=== PATIENT | female | born 1965 | race Caucasian/White ===

== ENCOUNTER 2017-08-18 09:24 | Observation (INO) | payer OTHER, SELFPAY ==
[2017-08-18 10:44] LABS: ALT (SGPT) 12 U/L (8-55); AST (SGOT) 13 U/L (5-34); Alkaline Phosphatase 85 U/L (40-150); Anion Gap 12 mmol/L (10-20); BUN (Urea Nitrogen) 12 mg/dL (9.8-20.1); Bilirubin, Total 0.2 mg/dL (0.2-1.2); Calc. Creatinine Clearance 0 mL/min (70-130); Calcium 8.8 mg/dL (7.8-10.44); Carbon Dioxide 26 mmol/L (22-29); Chloride 105 mmol/L (98-107); Estimated GFR-MDRD 89; Globulin 2.9 g/dL (2.4-3.5); Protein, Total 6.3 g/dL (6.0-8.3)
[2017-08-18 10:55] LABS: Hematocrit 16.1 % (36.0-47.0); Mean Platelet Volume 5.4 fL (7.4-10.4); Red Blood Cell (RBC) Count 2.38 mill/uL (4.20-5.40); White Blood Cell (WBC) Count 7.1 thou/uL (4.8-10.8)
[2017-08-18 11:10] LABS: #Basophils 0.1 thou/uL (0.0-0.2); #Eosinphils 0.2 thou/uL (0.0-0.7); #Lymphocytes 2.4 thou/uL (1.20-3.40); #Neutrophils 3.4 thou/uL (1.40-6.50); %Basophils 1.5 % (0.0-1.0); %Eosinophils 2.8 % (0.0-10.0); %Lymphocytes 33.1 % (21.0-51.0); %Monocytes 14.7 % (0.0-10.0); Hypochromia MODERATE=16-30 cells (100X) (0-5/hpf); Microcytosis MARKED = >30 cells (100X) (0-5/hpf)
[2017-08-18 11:40] LABS: Hematocrit 18.4 % (36.0-47.0); White Blood Cell (WBC) Count 7.7 thou/uL (4.8-10.8)
[2017-08-18 11:58] LABS: #Basophils 0.1 thou/uL (0.0-0.2); #Eosinphils 0.2 thou/uL (0.0-0.7); #Lymphocytes 2.6 thou/uL (1.20-3.40); #Neutrophils 3.7 thou/uL (1.40-6.50); %Basophils 0.8 % (0.0-1.0); %Eosinophils 2.6 % (0.0-10.0); %Lymphocytes 34.4 % (21.0-51.0); %Monocytes 13.4 % (0.0-10.0); Hypochromia MODERATE=16-30 cells (100X) (0-5/hpf); Microcytosis MARKED = >30 cells (100X) (0-5/hpf)
--- NOTE | 2017-08-18 12:10 | RAD ---
PA AND LATERAL CHEST: Date: 08/18/17 HISTORY: Dyspnea. COMPARISON: 08/08/05. FINDINGS: Heart size is within normal limits. Mediastinal structures appear unremarkable. Lungs are clear of in filtrates. There are no significant bony findings. IMPRESSION: No active intrathoracic disease. POS: [facility]
[2017-08-18 12:18] LABS: Bilirubin Negative (Negative); Blood, Urine Negative (Negative); Glucose, Urine (Dipstick) Negative (Negative); Ketone, Urine Negative (Negative); Nitrite Negative (Negative); Protein, Urine (Dipstick) Negative (Neg-Trace); Urobilinogen 0.2 mg/dL (0.2-1.0)
[2017-08-18 12:34] LABS: Iron 154 ug/dL (50-170)
[2017-08-18 14:05] LABS: IRF 0.495 Ratio (0.163-0.362); Reticulocyte Count 4.6 % (0.5-1.5)
[2017-08-18] MEDS ORDERED: Acetaminophen 325 MG TAB PO PRN (14:39)
[2017-08-18] MEDS ORDERED: Ondansetron HCl/PF 4 MG/2 ML Vial IVP PRN (14:39)
[2017-08-18] MEDS ORDERED: Ondansetron ODT 4 MG TAB SL PRN (14:39)
[2017-08-18 15:52] VITALS: BMI 28.2
--- NOTE | 2017-08-18 17:01 | PDOC.EVN ---
Attending Addendum - Attending Addendum I personally evaluated the patient and discussed the management with Dr. Vick. I agree with the History, Examination, Assessment and Plan documented in her H& P with any addition or exceptions noted below. Patient with significant medical history for multiple GI surgeries, most recently an ischemic bowel resection in February, here for 1 month history of worsening symptoms of fatigue, dyspnea on exertion, palpitations, and presyncopal symptoms upon position changes. She denies melana, hematochezia, hematemesis. Her last menstrual period as in 2016. She reports she has been taking iron the last few days with minimal improvement. On exam, her vitals are stable. Her BP is normal. She is resting comfortable. She has mild pallor, but exam otherwise normal. Labs show a Hgb of 4.7 with microcytosis and hyporegenerative on retic index. She has no evidence of active bleeding. We will transfuse patient. Awaiting ferritin results as this is likely somewhat a nutritional issue due to her multiple GI resections. However, will also rule out occult bleeding through the GI tract. Her anemia is hyporegenerative, suggesting either bone marrow failure, or more likely a nutritional cause since her other cell lines are not abnormal. Await labs and assess clinical progress.
--- NOTE | 2017-08-18 22:17 | HP-2 ---
CODE STATUS: FULL. PRIMARY CARE PHYSICIAN: None. ATTENDING: Dr. David. RESIDENT: Dr. Vick. CHIEF COMPLAINT: Shortness of breath, palpitations and fatigue. 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 She reports that when she would get up after resting for a while, she will f eel her heart racing. She was recently discharged in February after a small bowel resection where she sanabria d 1.5-2 feet of small bowel resected. She reports no melena or hematochezia. Recently, she does rep ort that she has had some dark stools the last 3 days; however, she recently started taking iron 4 da ys ago due to this fatigue. She has had no recent nausea, vomiting or hematuria. She has not had he r menstrual period since 04/2016. PAST MEDICAL HISTORY: 1. Congenital atresia of small bowel. 2. Anxiety. PAST SURGICAL HISTORY: 1. Congenital atresia of small bowels resection, 2 weeks of age. 2. Adhesiolysis and appendectomy at 16 years of age. 3. Adhesiolysis in 12/2016. 4. Small bowel resection in 01/2017. 5. section. 6. Bilateral tubal ligation. ALLERGIES: CEPHALEXIN. MEDICATIONS: 1. Xanax 0.5 mg daily. 2. Multivitamin. 3. Iron for the past 4 days. FAMILY HISTORY: Mom and dad have hypertension. SOCIAL HISTORY: Denies tobacco, alcohol or drug use, but reports of past history very remotely, but would not expound. REVIEW OF SYSTEMS: A 12-point review of systems was conducted and was negative, except for what was mentioned in the HPI. PHYSICAL EXAMINATION: VITAL SIGNS: Blood pressure 103/53, pulse 83, respiratory rate 18, temperature 98.9, pulse ox 99% on room air and current weight 81.74 kilograms. GENERAL: Alert and oriented x3, no acute distress, well-nourished, appropriately interactive. EYES: PERRLA. Extraocular muscles intact. Conjunctival pallor. ENT: Nasal mucosa and oropharynx within normal limits. NECK: Supple. No lymphadenopathy. CARDIOVASCULAR: Regular rate and rhythm. No murmurs or gallops. 2+ radial and pedal pulses are str shruthi. RESPIRATORY: Normal effort. No retractions. Clear to auscultation bilaterally. SKIN: Warm and dry. No cyanosis or lesions. Generalized pallor. ABDOMEN: Soft, nontender to palpation, normoactive bowel sounds. No mass or distention. Surgical s cars noted. EXTREMITIES: No cyanosis or edema. MUSCULOSKELETAL: Structure and tone within normal limits. NEUROLOGIC: No focal deficits. GCS is 15. PSYCHIATRIC: Appropriate. LABORATORY DATA: WBC 7.1, hemoglobin 4.7, hematocrit 16.1, MCV 67.3 and platelets 347. Sodium 139, potassium 3.7, chloride 105, CO2 of 26, BUN 12, creatinine is 0.69, GFR 89, glucose 84, calcium 8.8, total protein 6.3, albumin 3.4, AST 13, ALT 12, alkaline phosphatase 85, T-bili 0.2. Retic count 4.6 , immature retic fraction 0.495 and retic index 0.82. Vitamin B12 331, folate 17.9, iron 154 and TIB C 393. Blood type A positive, antibody negative. Urinalysis negative for blood, proteins, leukocyte esterase, nitrites, ketones, glucose and bacteria. Chest x-ray showed no active intrathoracic disea se. ASSESSMENT AND PLAN: This is a 51-year-old female who presents with: 1. Severe symptomatic microcytic anemia. Differential diagnosis malabsorption versus gastrointestin al bleeding. We will do a blood transfusion and trend hemoglobin and hematocrit 4 hours status post transfusion. We will check ferritin level and stool guaiac. If the ferritin is low, we will do iron infusion due to a low reticulocyte index. Patient will need better outpatient follow up with outpat ient colonoscopy if no evidence of gastrointestinal bleeding and will need a GI consult with inpatien t colonoscopy if evidence of gastrointestinal bleed is found. 2. History of small-bowel obstruction with postop ileus. We will give stool softeners as giving iro n. 3. Anxiety. We will consider selective serotonin reuptake inhibitor. 4. Venous thromboembolism prophylaxis, sequential compression devices. DISPOSITION: Observation on tele. Symptomatic medications will be provided. History and physical exam as well as management discussed with Dr. David.
[2017-08-19 00:57] LABS: Hematocrit 23.6 % (36.0-47.0)
[2017-08-19 04:07] LABS: #Eosinphils 0.2 thou/uL (0.0-0.7); #Lymphocytes 2.3 thou/uL (1.20-3.40); #Monocytes 0.8 thou/uL (0.11-0.59); #Neutrophils 2.3 thou/uL (1.40-6.50); %Basophils 0.6 % (0.0-1.0); %Eosinophils 4.2 % (0.0-10.0); %Monocytes 14.1 % (0.0-10.0); Hematocrit 23.7 % (36.0-47.0); Mean Platelet Volume 7.5 fL (7.4-10.4); Red Blood Cell (RBC) Count 3.11 mill/uL (4.20-5.40); White Blood Cell (WBC) Count 5.7 thou/uL (4.8-10.8)
[2017-08-19] MEDS: Ascorbic Acid 500 mg Chewable Tablet PO SCH (07:38)
[2017-08-19] MEDS: Cyanocobalamin (Vitamin B-12) 1,000 MCG TAB PO SCH (07:38)
--- NOTE | 2017-08-19 08:57 | PDOC.FM ---
- Subjective Subjective: Patient feeling significantly better and can walk without getting short winded or dizzy this morning. She reports craving ice lately. Denies GI blood loss in stool or emesis. - Objective MAR Reviewed: Yes Vital Signs & Weight: Vital Signs (12 hours) Temp Pulse Resp BP Pulse Ox 08/19/17 07:47 98.1 F 88 16 110/56 L 98 08/19/17 03:58 72 16 89/50 L 99 Weight Weight 81.737 kg I&O: 08/18/17 08/19/17 08/20/17 06:59 06:59 06:59 Intake Total 700 Balance 700 Result Diagrams: 08/19/17 03:24 08/18/17 10:25 <Colleen Ibarra - Last Filed: 08/19/17 10:23> - Objective Vital Signs & Weight: Vital Signs (12 hours) Temp Pulse Resp BP Pulse Ox 08/19/17 07:47 98.1 F 88 16 110/56 L 98 08/19/17 03:58 72 16 89/50 L 99 Weight Weight 81.737 kg I&O: 08/18/17 08/19/17 08/20/17 06:59 06:59 06:59 Intake Total 700 Balance 700 Result Diagrams: 08/19/17 03:24 08/18/17 10:25 <Piotr David - Last Filed: 08/19/17 11:02> Phys Exam - Physical Examination Constitutional: NAD Respiratory: no wheezing, no rales, no rhonchi Cardiovascular: RRR, no significant murmur Gastrointestinal: soft, non-tender, positive bowel sounds Musculoskeletal: no edema Neurological: non-focal, normal sensation, moves all 4 limbs Psychiatric: normal affect, A&O x 3 <Colleen Ibarra - Last Filed: 08/19/17 10:23> Dx/Plan (1) Microcytic anemia Code(s): D50.9 - IRON DEFICIENCY ANEMIA, UNSPECIFIED Status: Acute Plan: now s/p 2 units PRBC and hgb improved from 4.7 TO 7.5. normal iron and TIBC however severely low ferritin, will give iron infusion today. check FOBT and if positive, needs GI consult. If negative will have GI followup outpatient. Likely 2/2 malabsorption due to small bowel anomalies. (2) Congenital atresia of small intestine Code(s): Q41.9 - CONGEN ABSENCE, ATRESIA AND STENOSIS OF SM INT, PART UNSP Status: Chronic <Colleen Ibarra - Last Filed: 08/19/17 10:23> Attending Addendum - Attending Addendum I personally evaluated the patient and discussed the management with Dr. Ibarra. I agree with the History, Examination, Assessment and Plan documented above with any addition or exceptions noted below. Patient feeling significantly better today. Her Hgb has responded appropriately. We are awaiting stool screening for blood, but this is likely nutritional related. Ferritin low, patient will be given Iron infusion today. If we can ensure no GI bleeding evidence, patient should be stable for dischage home later today. <Piotr David - Last Filed: 08/19/17 11:02>
[2017-08-19] MEDS ORDERED: Sodium Ferric Gluconate 250 MG in Sodium Chloride 0.9% 100 ML IVPB SCH (12:00)
[2017-08-19] MEDS ORDERED: Bisacodyl 5 MG TAB PO SCH (16:00)
--- NOTE | 2017-08-19 22:23 | CON ---
DATE OF CONSULTATION: 08/19/2017 REFERRING PHYSICIAN: Dr. Piotr David, [facility]. REASON FOR CONSULTATION: Severe symptomatic anemia. HISTORY OF PRESENT ILLNESS: Ms. Gena Astudillo is a very pleasant 51-year-old female who i s extremely healthy except for previous small bowel surgeries. The patient has no family doctor. Sh odell says she is very healthy and she has no medical problems and has no primary care doctor. The patie nt has history of ileal stenosis at and has had a surgery as an . Seventeen years later while she was living in [place], she had another repeat surgery. This was done by Dr. Lenin Sherwood . Over the last probably about 35 years, she has done very well until earlier this year. She was se en by Dr. Rafael Reardon in 12/2016 and again in 01/2017 because of bowel obstruction. 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 Since the surgery, she has done very well. The patient's last hemoglobin du ring the last admission in 12/2016 and 01/2017 was actually pretty normal at 11.5. The patient has b een feeling fatigued, no energy, and exertional dyspnea over the last several weeks. Apparently, a f ew days ago, she started taking iron supplement. The patient came to the ER because of the increasin g dyspnea with exertion and also some extreme fatigue. She had a CBC done yesterday. The CBC shows WBC count of 7100, hemoglobin 4.7, hematocrit 16.1, MCV 67.3, indicative of iron deficiency. The pat ient has no prior history of anemia. The patient has been transfused 2 units of blood. The most rec ent hemoglobin today is 7.5, hematocrit 23.7, MCV 76.3, platelet count 345,000. The patient has no h istory of any blood loss either hematochezia or melena. There is no history of hematuria, bleeding f rom the nose, or any bleeding from the gums. The patient had seen some dark stools after started pierre ing the iron supplement. Before the iron therapy, the stools are normal in color. She has no prior history of peptic ulcer. There is no history of abdominal pain, nausea, or vomiting; however, she te lls me that she has been having some heartburn, indigestion at times, also the food sticking in the e sophagus recently. The patient mostly drinks water to make the food go down. She has no other relev ant history. ALLERGIES: CEPHALEXIN. SOCIAL HISTORY: The patient does not smoke or drink alcohol. MEDICAL ILLNESSES: 1. History of ileal stenosis at . 2. Anxiety. SURGERIES: 1. Status post surgery for ileal stenosis at breath. 2. Release of adhesions and appendectomy at age 16. 3. Release of adhesions in 12/2016. 4. There was small bowel obstruction in 01/2017. 5. . 6. Bilateral tubal ligation. MEDICATIONS: Include Xanax, iron supplement, and multivitamin. FAMILY HISTORY: Both parents have hypertension. There is family history of heart disease, cancer, s trokes. REVIEW OF SYSTEMS: A 10-point system reviewed. Constitutional: No history of any fever or chills, no weight loss. Apparently, she has been fatigued over the last several weeks. Cardiovascular Syste m: History of dyspnea mostly from anemia, history of palpitation. No chest pain. No orthopnea, PND . Respiratory System: No history of chronic cough, hemoptysis, dyspnea. Gastrointestinal: History of dysphagia, indigestion over the last few weeks and complete heartburn. Genitourinary: Unremarka ble. Musculoskeletal: Unremarkable. Endocrine: Unremarkable. Hematological: Unremarkable. Neur opsychiatric: Not relevant. PHYSICAL EXAMINATION: GENERAL: The patient is a very pleasant female, who appears very comfortable. She is awak e, alert, and communicative. She is in no distress. VITAL SIGNS: Very stable. Afebrile, temperature 98.2 degrees Fahrenheit, pulse is 80, blood pressur e 108/67. HEENT: Conjunctivae clear. NECK: Supple. No adenitis or thyromegaly noted. CARDIOVASCULAR SYSTEM: First and second heart sounds normal. LUNGS: Clear to auscultation. ABDOMEN: Soft to palpate. Abdomen is nondistended. Abdomen is nontender. There is no organomegaly or masses. Bowel sounds are normal. EXTREMITIES: Reveal no edema. LABORATORY DATA: Shows severe anemia which is microcytic. Admitting CBC, hemoglobin 4.7 came up to 7.5, hematocrit 16.1 came up to 23.7, platelet count is 345,000, MCV is low indicative of chronic iro n-deficiency anemia, the polymorphs are 48, lymphocytes are 34, monocytes 13, retic count is 4.6. Ch emistry panel: Sodium is 139, potassium 3.7, chloride 105, bicarbonate 26, BUN 12, creatinine 0.69, glucose is 84, calcium 8.8, iron is 154, TIBC 393, ferritin is very low at 4.15, AST is 13, ALT 12, a lkaline phosphatase 85, albumin 3.4, bilirubin 0.2. Vitamin B12 is 331. Folate is 17.90. The stool for occult blood came back positive. CLINICAL IMPRESSION: 1. A 51-year-old female with profound anemia. The anemia is microcytic. She has no histo ry of overt bleeding in the form of melena or rectal bleeding; however, her stool guaiac came back po sitive. 2. History of ileal stenosis at with multiple surgeries subsequently. 3. Anxiety. RECOMMENDATIONS: 1. Changing diet to clear liquid diet today. 2. We will start the prep early tomorrow morning for a colonoscopy and EGD. I did explain Ms. Yoel tovar about the prep for the colonoscopy, which include drinking GoLYTELY and also taking procedur e and benefits and risks. The patient is agreeable. I will plan for EGD and colonoscopy tomorrow mo rning.
[2017-08-20] MEDS ORDERED: GoLYTELY 4,000 ml Bottle PO SCH (05:00)
[2017-08-20 05:29] LABS: #Basophils 0.1 thou/uL (0.0-0.2); #Eosinphils 0.3 thou/uL (0.0-0.7); #Lymphocytes 1.8 thou/uL (1.20-3.40); #Monocytes 0.9 thou/uL (0.11-0.59); #Neutrophils 4.3 thou/uL (1.40-6.50); %Basophils 0.9 % (0.0-1.0); %Eosinophils 3.5 % (0.0-10.0); %Lymphocytes 24.5 % (21.0-51.0); %Monocytes 12.7 % (0.0-10.0); Anisocytosis SLIGHT = 6-15 cells (100X) (0-5/hpf); Hematocrit 25.6 % (36.0-47.0); Hypochromia SLIGHT = 6-15 cells (100X) (0-5/hpf); Mean Platelet Volume 7.4 fL (7.4-10.4); Red Blood Cell (RBC) Count 3.32 mill/uL (4.20-5.40); White Blood Cell (WBC) Count 7.4 thou/uL (4.8-10.8)
--- NOTE | 2017-08-20 07:38 | PDOC.FM ---
- Subjective Subjective: Patient is doing okay this morning but does report being very tired. Otherwise no complaints. She does report recently taking some occasional ranitidine for acid reflux which is new for her. - Objective MAR Reviewed: Yes Vital Signs & Weight: Vital Signs (12 hours) Temp Pulse Resp BP Pulse Ox 08/20/17 03:39 98.2 F 75 18 102/59 L 96 08/19/17 23:28 98.2 F 81 16 100/59 L 96 08/19/17 20:20 98.6 F 75 16 Weight Admit Weight 81.647 kg Weight 81.737 kg I&O: 08/19/17 08/20/17 08/21/17 06:59 06:59 06:59 Intake Total 700 1660 Output Total 1200 Balance 700 460 Result Diagrams: 08/20/17 03:37 08/18/17 10:25 <Colleen Ibarra - Last Filed: 08/20/17 07:35> - Objective Vital Signs & Weight: Vital Signs (12 hours) Temp Pulse Resp BP Pulse Ox 08/20/17 03:39 98.2 F 75 18 102/59 L 96 Weight Admit Weight 81.647 kg Weight 81.737 kg I&O: 08/19/17 08/20/17 08/21/17 06:59 06:59 06:59 Intake Total 700 1660 Output Total 1200 Balance 700 460 Result Diagrams: 08/20/17 03:37 08/18/17 10:25 <Piotr David - Last Filed: 08/20/17 11:32> Phys Exam - Physical Examination Constitutional: NAD Respiratory: no wheezing, no rales, no rhonchi, clear to auscultation bilateral Cardiovascular: RRR, no significant murmur Gastrointestinal: soft, non-tender Musculoskeletal: no edema Neurological: non-focal, normal sensation, moves all 4 limbs Psychiatric: normal affect, A&O x 3 <Colleen Ibarra - Last Filed: 08/20/17 07:35> Dx/Plan (1) Microcytic anemia Code(s): D50.9 - IRON DEFICIENCY ANEMIA, UNSPECIFIED Status: Acute Plan: s/p 2 units PRBC and 250 mg iron infusion. hgb improved from 4.7 to 8 this morning +FOBT and will have EGD/Colonoscopy today. Likely home after that unless severely abnormal finding. DC with BID ferrous sulfate. (2) Congenital atresia of small intestine Code(s): Q41.9 - CONGEN ABSENCE, ATRESIA AND STENOSIS OF SM INT, PART UNSP Status: Chronic <Colleen Ibarra - Last Filed: 08/20/17 07:35> Attending Addendum - Attending Addendum I personally evaluated the patient and discussed the management with Dr. Ibarra. I agree with the History, Examination, Assessment and Plan documented above with any addition or exceptions noted below. Patient improved symptomatically. She is having EGD and colonoscopy later this morning. Await final GI recs, but hopeful discharge home after those studies. No evidence of active bleeding. <Piotr David - Last Filed: 08/20/17 11:32>
[2017-08-20] MEDS: Ascorbic Acid 500 mg Chewable Tablet PO SCH (08:43)
[2017-08-20] MEDS: Cyanocobalamin (Vitamin B-12) 1,000 MCG TAB PO SCH (08:43)
[2017-08-20] MEDS ORDERED: Propofol 200 MG/20 ML VIAL ONE (09:48)
[2017-08-20] MEDS ORDERED: Diprivan 20 ML ONE (10:37)
[2017-08-20 13:01] VITALS: TEMP 98.6
[2017-08-20 13:04] VITALS: BP 115/56
--- NOTE | 2017-08-20 15:51 | OP ---
DATE OF PROCEDURE: 08/20/2017 OPERATIVE PROCEDURE: Esophagogastroduodenoscopy with biopsy. PREOPERATIVE DIAGNOSIS: A 51-year-old female with severe symptomatic microcytic anemia. T here are no specific gastrointestinal symptoms except recent heartburn. POSTOPERATIVE DIAGNOSIS: Normal esophagogastroduodenoscopy. Random biopsies were obtained from the descending duodenum to rule out celiac disease. PROCEDURE IN DETAIL: The patient was placed on her left lateral position and was given sedation by A nesthesia Department. A Pentax video gastroscope under direct vision was passed down the oropharynx, past the GE junction into the stomach and subsequently descending duodenum. Although the patient co mplains of recent reflux symptoms, at endoscopy the esophageal mucosa appeared normal. There is no e vidence of intrinsic lesions seen. The GE junction, no pathology seen. Retroflexion failed to show any lesions in the fundus or cardia. The gastric body, gastric antrum, incisura angularis, no pathol ogy seen. The duodenal bulb and descending duodenum, no pathology seen. Random biopsies were obtain ed in the descending duodenum. The stomach was decompressed and the scope removed. DISCHARGE RECOMMENDATIONS: 1. Iron supplement. 2. Follow up hemoglobin and hematocrit. 3. The patient will come back to see me in 2 weeks for a followup visit.
--- NOTE | 2017-08-20 23:24 | OP ---
DATE OF PROCEDURE: 08/20/2017 OPERATIVE PROCEDURE: Colonoscopy. PREOPERATIVE DIAGNOSIS: A 51-year-old female with unexplained, symptomatic microcytic anem ia. There is no history of overt gastrointestinal bleeding. The patient is undergoing colonoscopy. POSTOPERATIVE DIAGNOSIS: Mild sigmoid diverticular disease with occasional diverticula over the righ t colon. Otherwise, normal exam. PROCEDURE IN DETAIL: The patient was placed on her left lateral position and was given sedation by A nesthesia Department. A rectal exam was done before the scope was advanced into the rectum. No lesi ons felt on rectal exam. A Pentax video colonoscope was introduced into the rectum and advanced all the way into the cecum. The prep was good. The patient did have some retained stool and over the right colon, which was washed out. The appendiceal orifice and ileocecal valve, no pathology see n. There was an occasional diverticulum seen over the cecal area. The ascending colon, hepatic flex ure, no pathology seen. The transverse colon, splenic flexure, and descending colon, no lesions. Th e sigmoid colon shows mild diverticular disease. Retroflexion of scope in the rectum showed no patho logy.
--- NOTE | 2017-08-23 03:51 | DIS-2 ---
DATE OF ADMISSION: 08/18/2017 DATE OF DISCHARGE 08/20/2017 ADMITTING ATTENDING: Dr. Piotr David DISCHARGE ATTENDING: Dr. Piotr David CONSULTATIONS: Dr. Kulkarni. RESIDENT: Dr. Colleen Ibarra PRIMARY DIAGNOSES: 1. Severe microcytic anemia. 2. Iron deficiency anemia. 3. Congenital history of small bowel atresia. DISCHARGE MEDICATIONS: 1. Vitamin B12 1000 mcg p.o. daily. 2. Vitamin C 1000 mg p.o. daily. 3. Ferrous sulfate 325 mg p.o. b.i.d. 4. Multivitamin 1 tab p.o. daily. PROCEDURES: The patient underwent an EGD and colonoscopy on 08/20/2017 which was essentially normal with pending biopsy results to rule out celiac disease at the time of this dictation. HISTORY OF PRESENT ILLNESS/HOSPITAL COURSE: This is a 51-year-old female with an extensive history o f congenital bowel atresia who has had to undergo several small bowel resection surgeries, most recen tly in December and January of 2017. The patient came to the hospital complaining of severe fatigue and was found to have a hemoglobin of 4.7. The patient underwent 2 units of packed red blood cell transfusio n and did have a significant increase in her hemoglobin to 8 on the day of discharge. Due to the sev ere anemia and a positive guaiac stool study, the patient did undergo a colonoscopy which did not hav e any abnormal findings. A sample was taken to rule out celiac disease. It was thought that the narinder hernandez patient's severe anemia is likely secondary to iron deficiency, possibly secondary to malabsorpti on in light of patient's extensive surgical history. The patient was started on iron. The patient also received an iron transfusion on second day of her hospitalization. The patient is to follow up with Dr. Kulkarni in 2 weeks after discharge. DISPOSITION: Stable. DISCHARGE INSTRUCTIONS: 1. Location: Home. 2. Activity: As tolerated. 3. Diet: Regular. 4. Followup: Follow up with Dr. Kulkarni in 2 weeks.
== END 2017-08-20 14:58 | disposition home or self-care (01) ==
LOC: SCSER 09:24 → 2SW 14:28
PROVIDERS: ADMIT Student in an Organized Health Care Education/Training Program; ATTEND Student in an Organized Health Care Education/Training Program
PROC: 0DJD8ZZ Inspection of Lower Intestinal Tract, Via Natural or Artificial Opening Endoscopic (ICD-10-PCS; principal; 2017-08-20)
PROC: 0DB98ZX Excision of Duodenum, Via Natural or Artificial Opening Endoscopic, Diagnostic (ICD-10-PCS; 2017-08-20)
DX: D50.9 Iron deficiency anemia, unspecified (principal); K57.30 Diverticulosis of large intestine without perforation or abscess without bleeding; Q41.9 Congenital absence, atresia and stenosis of small intestine, part unspecified; F41.9 Anxiety disorder, unspecified; Z88.1 Allergy status to other antibiotic agents; Z79.899 Other long term (current) drug therapy; Z90.49 Acquired absence of other specified parts of digestive tract; Z98.890 Other specified postprocedural states; Z82.49 Family history of ischemic heart disease and other diseases of the circulatory system
CPT/HCPCS: 36415; 36430; 71020; 80053; 81003; 82274; 82607; 82728; 82746; 83540; 83550; 85025; 85046; 85060; 86850; 86900; 86901; 88305; 93005; 96365; G0378; J2704; J2916; J7050; P9016

== ENCOUNTER 2017-08-22 15:02 | Emergency (ER) | payer SELFPAY | END 2017-08-22 15:52 | disposition home or self-care (01) | LOC: SCSER 15:02 | DX: L03.114 Cellulitis of left upper limb (principal); F41.9 Anxiety disorder, unspecified; K21.9 Gastro-esophageal reflux disease without esophagitis; Z85.43 Personal history of malignant neoplasm of ovary; Z85.528 Personal history of other malignant neoplasm of kidney; Z85.118 Personal history of other malignant neoplasm of bronchus and lung; Z85.038 Personal history of other malignant neoplasm of large intestine | CPT/HCPCS: 99284 ==

== ENCOUNTER 2018-04-23 00:41 | Emergency (ER) | payer SELFPAY ==
[2018-04-23] MEDS ORDERED: Ibuprofen 800 MG TAB ONE (01:22)
[2018-04-23 01:54] LABS: #Basophils 0.1 thou/uL (0.0-0.2); #Eosinphils 0.4 thou/uL (0.0-0.7); #Lymphocytes 2.2 thou/uL (1.20-3.40); #Monocytes 0.8 thou/uL (0.11-0.59); #Neutrophils 2.6 thou/uL (1.40-6.50); %Basophils 1.8 % (0.0-1.0); %Eosinophils 6.3 % (0.0-10.0); %Monocytes 13.6 % (0.0-10.0); %Neutrophils 42.3 % (42.0-75.0); Hemoglobin 11.6 g/dL (12.0-16.0); Mean Corpuscular HGB CONC 33.4 g/dL (32.0-36.0); Mean Corpuscular Hemoglobin 27.9 pg (27.0-31.0); Mean Corpuscular Volume 83.4 fL (78.0-98.0); Platelet Count 295 thou/uL (130-400); Red Blood Cell (RBC) Count 4.17 mill/uL (4.20-5.40); White Blood Cell (WBC) Count 6.1 thou/uL (4.8-10.8)
[2018-04-23 02:07] LABS: ALT (SGPT) 14 U/L (8-55); AST (SGOT) 18 U/L (5-34); Albumin 3.9 g/dL (3.5-5.0); Alkaline Phosphatase 123 U/L (40-150); Anion Gap 11 mmol/L (10-20); BUN (Urea Nitrogen) 8 mg/dL (9.8-20.1); Bilirubin, Total 0.4 mg/dL (0.2-1.2); Calc. Creatinine Clearance 0 mL/min (70-130); Carbon Dioxide 25 mmol/L (22-29); Chloride 106 mmol/L (98-107); Estimated GFR-MDRD 81; Globulin 3.4 g/dL (2.4-3.5); Glucose 98 mg/dL (70-105); Potassium 3.3 mmol/L (3.5-5.1); Protein, Total 7.3 g/dL (6.0-8.3); Sodium 139 mmol/L (136-145)
[2018-04-23 02:09] LABS: CKMB 0.8 ng/mL (0-6.6); Troponin I Less than 0.010 ng/mL (< 0.028)
[2018-04-23] MEDS ORDERED: Potassium Chloride 20 MEQ TAB ONE (02:16)
--- NOTE | 2018-04-23 07:58 | RAD ---
LEFT SHOULDER 3 VIEWS: HISTORY: Shoulder pain. COMPARISON: None. FINDINGS: No fracture. No malalignment. Soft tissues unremarkable. IMPRESSION: No acute abnormality. POS: [facility]
--- NOTE | 2018-04-23 08:45 | RAD ---
CHEST 1 VIEW: Date: 04/23/18 HISTORY: Chest pain. COMPARISON: Chest radiograph from 2017. FINDINGS: Lungs are clear with no pneumothorax or effusion. Cardiac silhouette and mediastinal contour is withi n normal limits. IMPRESSION: No acute intrathoracic abnormality. POS: [facility]
--- NOTE | 2018-04-25 14:59 | EKG ---
Test Reason : SHOULLDER PAIN Blood Pressure : / mmHG Vent. Rate : 071 BPM Atrial Rate : 071 BPM P-R Int : 138 ms QRS Dur : 094 ms QT Int : 422 ms P-R-T Axes : 048 032 043 degrees QTc Int : 458 ms Normal sinus rhythm Normal ECG Confirmed by ART SWENSON DO ([id number]), international editorial producer SOUTH ESCALERA ([id number]) on 04/25/2018 2:59:03 PM Referred By: MESSI Confirmed By:ART SWENSON DO
== END 2018-04-23 02:14 | disposition home or self-care (01) ==
LOC: SCSER 00:41
DX: M25.512 Pain in left shoulder (principal); F41.9 Anxiety disorder, unspecified
CPT/HCPCS: 71045; 80053; 82553; 84484; 85025; 93005

== ENCOUNTER 2018-05-08 22:06 | Emergency (ER) | payer BC, SELFPAY | END 2018-05-08 22:59 | disposition home or self-care (01) | LOC: SCSER 22:06 | DX: M54.2 Cervicalgia (principal); F41.9 Anxiety disorder, unspecified | CPT/HCPCS: 99283 ==

== ENCOUNTER 2019-06-11 20:42 | Inpatient (IN) | payer BC ==
[2019-06-11 21:02] LABS: #Basophils 0.1 thou/uL (0.0-0.2); #Eosinphils 0.3 thou/uL (0.0-0.7); #Lymphocytes 2.2 thou/uL (1.20-3.40); #Monocytes 0.9 thou/uL (0.11-0.59); #Neutrophils 6.1 thou/uL (1.40-6.50); %Basophils 1.1 % (0.0-1.0); %Eosinophils 2.8 % (0.0-10.0); %Lymphocytes 22.8 % (21.0-51.0); %Monocytes 9.7 % (0.0-10.0); %Neutrophils 63.6 % (42.0-75.0); Hemoglobin 13.9 g/dL (12.0-16.0); Mean Corpuscular HGB CONC 31.9 g/dL (32.0-36.0); Mean Platelet Volume 8.4 fL (7.4-10.4); Platelet Count 299 thou/uL (130-400); Red Blood Cell (RBC) Count 4.96 mill/uL (4.20-5.40); White Blood Cell (WBC) Count 9.6 thou/uL (4.8-10.8)
[2019-06-11] MEDS ORDERED: Ondansetron PF 4 MG/2 ML Vial ONE (21:03)
[2019-06-11 21:17] LABS: ALT (SGPT) 34 U/L (8-55); AST (SGOT) 40 U/L (5-34); Albumin 4.3 g/dL (3.5-5.0); Alkaline Phosphatase 153 U/L (40-110); Anion Gap 16 mmol/L (10-20); BUN (Urea Nitrogen) 10 mg/dL (9.8-20.1); Bilirubin, Total 0.6 mg/dL (0.2-1.2); Calc. Creatinine Clearance 0 mL/min (70-130); Calcium 9.9 mg/dL (7.8-10.44); Carbon Dioxide 27 mmol/L (22-29); Chloride 103 mmol/L (98-107); Estimated GFR-MDRD 72; Globulin 3.8 g/dL (2.4-3.5); Glucose 88 mg/dL (70-105); Potassium 3.9 mmol/L (3.5-5.1); Protein, Total 8.1 g/dL (6.0-8.3); Sodium 142 mmol/L (136-145)
--- NOTE | 2019-06-11 21:38 | CT ---
EXAM: Abdomen and pelvic CT scan with contrast: HISTORY: Pain COMPARISON: None FINDINGS: The visualized lung bases are clear. Liver: Hepatic steatosis Gallbladder: Unremarkable. Pancreas: Unremarkable Spleen: Unremarkable. Adrenal glands: Unremarkable. Kidneys: No renal calculus or acute obstruction. No solid or cystic mass. Bowel: Abnormal dilatation of fecalized, fluid-filled small bowel with associated wall hyperemia and areas of wall thickening, most pronounced within the mid to low abdomen, with dilated loops measuring up to approximate 4.5 cm. A site of transition is seen at the right lower quadrant with sub sequent decompressed small bowel and localized bowel wall prominence adjacent anastomotic suture of the right abdomen. There is mild colonic diverticulosis. Urinary Bladder: Decompressed and unopacified, limiting assessment Adenopathy: No adenopathy within the abdomen or pelvis. Free Air: No free air. Ascites: No ascites. Osseous structures: No acute osseous abnormalities. IMPRESSION: Evidence of moderate to high-grade mechanical bowel obstruction, limited in assessment without the pr esence of enteric contrast. Site of transition is seen at the right abdomen, adjacent anastomotic suture material. Recommend surgical consultation for further care. Transcribed Date/Time: 06/11/2019 9:42 PM
[2019-06-12] MEDS ORDERED: Morphine 2 MG/ML SYRINGE SLOW IVP PRN (00:23)
[2019-06-12] MEDS ORDERED: Ondansetron ODT 4 MG TAB SL PRN (00:24)
[2019-06-12] MEDS ORDERED: Morphine 4 MG/ML VIAL SLOW IVP PRN (00:24)
[2019-06-12] MEDS ORDERED: Sodium Chloride 0.9% 1,000 ML IV SCH (00:24)
[2019-06-12] MEDS ORDERED: Ondansetron PF 4 MG/2 ML Vial IVP PRN (00:24)
[2019-06-12 00:28] VITALS: BMI 29.0
[2019-06-12] MEDS ORDERED: Sodium Chloride 0.9% (PF) 10 ML VIAL FS PRN (07:12)
[2019-06-12] MEDS ORDERED: Fluticasone Propionate Nasal Spray 16 gm Bottle NASAL PRN (07:48)
--- NOTE | 2019-06-12 08:00 | RAD ---
ABDOMINAL SURVEY WITH UPRIGHT CHEST AND 2 VIEW ABDOMEN: Date: 06/12/19 INDICATION: Small bowel obstruction follow-up. FINDINGS: NG tube has been passed and the tip is just beyond the EG junction in the upper stomach. The lungs ap pear clear on the frontal chest projection. Views of the abdomen show scattered stool and gas in the colon. There are gas-filled mildly dilated l oops of small bowel in the mid abdomen. Bladder is filled with contrast consistent with previous iodi nated contrast injection from CT scan. IMPRESSION: Gas-filled dilated loops of small bowel in the mid abdomen. Scattered stool and gas throughout the co tita. POS: [facility]
[2019-06-12] MEDS ORDERED: Ondansetron ODT 8 MG TAB SL PRN (08:14)
[2019-06-12] MEDS ORDERED: Ondansetron ODT 4 MG TAB PO PRN (08:14)
[2019-06-12] MEDS ORDERED: Ondansetron ORAL SOLN. 4 MG/5 ML UDCUP PO PRN (08:14)
[2019-06-12] MEDS ORDERED: Acetaminophen 1,000 MG in Premix Bag 1 BAG IVPB SCH (08:15)
[2019-06-12] MEDS ORDERED: Acetaminophen 1,000 MG in Premix Bag 1 BAG IVPB PRN (08:15)
[2019-06-12] MEDS ORDERED: Ondansetron HCl/PF 8 MG in Sodium Chloride 0.9% 50 ML IVPB SCH (08:15)
[2019-06-12] MEDS ORDERED: Ketorolac Tromethamine 30 MG/ML VIAL IVP SCH (08:15)
[2019-06-12] MEDS ORDERED: Ketorolac Tromethamine 30 MG/ML VIAL IVP PRN (08:15)
[2019-06-12] MEDS: Enoxaparin Sodium 40 MG/0.4 ML SYRINGE SC SCH (08:26)
[2019-06-12] MEDS: Pantoprazole 40 MG VIAL IVP SCH (08:27)
[2019-06-12] MEDS: Potassium Chloride 20 MEQ in Lactated Ringer's 1,000 ML IV SCH ×2 (08:27→15:02)
--- NOTE | 2019-06-12 11:04 | HP ---
HISTORY OF PRESENT ILLNESS: Gena Astudillo is a 53-year-old female, who presents with onset of abdominal pain yesterday, nausea. Last bowel movement was 4 days ago. She reports passing some flatus even since she has been in the hospital. She was seen in the emergency room. CAT scan revealed dilated stomach full of gastric contents, dilated proximal small bowel, decompressed distal small bowel. She was admitted and NG tube was attempted in the emergency room, but they could not place it. When I arrived this morning to see her, she has not had an NG tube, and I reported to her bedside and placed one without difficulty. X-rays have been ordered. The patient is 16 years of age, had an appendectomy for appendicitis, open right paramedian incision. Adhesions taken down. She has had a and bilateral tubal ligation in the past. In 2016, I saw her for a bowel obstruction, and in January, she underwent laparoscopy converted to laparotomy with adhesiolysis for there in 2 hours. She convalesced, but reported back with repeat bowel obstruction after 2 weeks and underwent a 5.5 hour adhesiolysis with a resection of the ileum and hand-sewn end-to-end anastomosis and closure of multiple enterotomies. I had a long ileus and prolonged convalescence, but did tolerate resume of bowel function. She states that since that operation, she has done well without any interval problems until this admission. In July of 2017, Dr. Kulkarni performed an EGD and colonoscopy that were unremarkable, except for diverticula. ALLERGIES: CEPHALEXIN. SOCIAL HISTORY: Tobacco, none. Alcohol, rarely. MEDICATIONS: None. PAST SURGICAL HISTORY: As above. PAST MEDICAL HISTORY: Noncontributory. REVIEW OF SYSTEMS: Ten-point noncontributory. PHYSICAL EXAMINATION: VITAL SIGNS: Height 5 feet 7 inches, weight 185 pounds, 29 BMI, temperature 97.9, heart rate 68, blood pressure 122/73. LUNGS: Clear to auscultation. CARDIAC: Regular rate and rhythm. No murmur, rub, or gallop. ABDOMEN: Soft, mildly distended, mildly tympanitic, but no guarding, no rebound. Midline incision well healed without hernias. EXTREMITIES: No edema. LABORATORY DATA: White count 9.6, hemoglobin 13. Comprehensive metabolic profile is normal. IMAGING STUDIES: Repeat CAT scan of the abdomen and pelvis results as noted above. Plain abdominal x-ray this morning revealed gas-filled dilated loops of small bowel in the abdomen. NG tube is noted in the upper stomach, despite it has been placed at 65 cm, it is in adequate location. She has air-fluid levels. She does have scattered gas in the colon and some gas in the rectum. ASSESSMENT/PLAN: Recurrent bowel obstruction, probably partial. She has passed some flatus since being in the hospital. There is fecalization sign on the CAT scan. I would recommend NG tube suction, trying to avoid operative intervention as her last hospitalization, which had two operations 2 weeks apart in 2017 with last laparotomy requiring a 5 hours of adhesiolysis. Continue NG tube suction today. Consider small bowel follow through tomorrow. Job ID: [id number]
[2019-06-12] MEDS: Chloraseptic Spray 180 ml Bottle PO PRN (11:09)
--- NOTE | 2019-06-12 13:05 | RAD ---
Small bowel series: DATE: 06/12/2019 HISTORY: 53-year-old female with small bowel obstruction. FINDINGS: Injection of Gastrografin through esophagogastric tube demonstrates contrast material in nondistended stomach, duodenum, and proximal jejunum. Later, dilute contrast material is visualized in dilated small bowel loop in the lower abdomen. The contrast material reaches the descending colon by one hour . IMPRESSION: No high-grade small bowel obstruction. 2. Dilated small bowel loops in lower abdomen. One possibility is a low-grade partial small bowel obs truction at the surgical anastomotic site, as demonstrated on the recent CT.
[2019-06-12] MEDS ORDERED: Acetaminophen 500 MG TAB PO PRN (16:51)
[2019-06-12] MEDS ORDERED: Ibuprofen 600 MG TAB PO PRN (16:51)
--- NOTE | 2019-06-12 17:12 | PRG ---
DATE OF SERVICE: 06/12/2019 She was doing so well today and feels so much better and her NG tube is not putting out much, so we decided to go ahead and do a small bowel followthrough, which was normal passage within an hour to hour and a half to the colon. She feels much better. She did have some dilated small bowel loops on her study indicative of possible partial obstruction and she did have fecalization on her CAT scan. She was counseled this for her diet, not overdoing the fiber in vegetables and fruits, but taking some in moderation. Today, we removed her NG tube and advanced her diet. I expect her to be able to be discharged home tomorrow. Dr. Bradshaw is covering and will see her from tomorrow and discharge her home most likely in the morning. Job ID: [id number]
[2019-06-13] MEDS: Chloraseptic Spray 180 ml Bottle PO PRN (05:09)
[2019-06-13 05:26] LABS: #Eosinphils 0.3 thou/uL (0.0-0.7); #Lymphocytes 1.7 thou/uL (1.20-3.40); #Monocytes 0.8 thou/uL (0.11-0.59); #Neutrophils 2.8 thou/uL (1.40-6.50); %Basophils 0.5 % (0.0-1.0); %Eosinophils 5.6 % (0.0-10.0); %Lymphocytes 30.9 % (21.0-51.0); %Monocytes 13.6 % (0.0-10.0); %Neutrophils 49.4 % (42.0-75.0); Hemoglobin 11.9 g/dL (12.0-16.0); Mean Corpuscular HGB CONC 33.7 g/dL (32.0-36.0); Mean Corpuscular Hemoglobin 30.1 pg (27.0-31.0); Mean Corpuscular Volume 89.2 fL (78.0-98.0); Mean Platelet Volume 8.1 fL (7.4-10.4); Platelet Count 248 thou/uL (130-400); RBC Distribution Width 12.2 % (11.5-14.5); Red Blood Cell (RBC) Count 3.94 mill/uL (4.20-5.40); White Blood Cell (WBC) Count 5.6 thou/uL (4.8-10.8)
[2019-06-13 05:49] LABS: ALT (SGPT) 22 U/L (8-55); AST (SGOT) 20 U/L (5-34); Albumin 3.5 g/dL (3.5-5.0); Alkaline Phosphatase 128 U/L (40-110); Anion Gap 11 mmol/L (10-20); BUN (Urea Nitrogen) 10 mg/dL (9.8-20.1); Bilirubin, Total 0.4 mg/dL (0.2-1.2); Calc. Creatinine Clearance 115 mL/min (70-130); Calcium 9.1 mg/dL (7.8-10.44); Carbon Dioxide 25 mmol/L (22-29); Chloride 105 mmol/L (98-107); Estimated GFR-MDRD 82; Globulin 3.1 g/dL (2.4-3.5); Glucose 88 mg/dL (70-105); Potassium 3.8 mmol/L (3.5-5.1); Protein, Total 6.6 g/dL (6.0-8.3); Sodium 137 mmol/L (136-145)
[2019-06-13 08:28] VITALS: BP 114/68; TEMP 98
--- NOTE | 2019-06-13 08:32 | RAD ---
EXAM: 2 views of the abdomen HISTORY: Small bowel obstruction COMPARISON: 02/02/2017 and small bowel follow-through 06/12/2019 FINDINGS: 2 views of the abdomen shows a nonspecific, nonobstructive bowel gas pattern. No free air o r air-fluid levels are seen on upright examination. The previously seen contrast has predominantly been evacuated but there is still a small amount of contrast in the left colon. No suspicious calcifi cations are seen. The bones are unremarkable. IMPRESSION: No evidence of bowel obstruction.
[2019-06-13] MEDS ORDERED: Polyethylene Glycol 3350 17 GM Packet PO SCH (09:00)
[2019-06-13] MEDS: Enoxaparin Sodium 40 MG/0.4 ML SYRINGE SC SCH (09:04)
[2019-06-13] MEDS: Pantoprazole 40 MG VIAL IVP SCH (09:06)
--- NOTE | 2019-06-14 05:06 | DIS ---
DATE OF ADMISSION: 06/11/2019 DATE OF DISCHARGE: 06/13/2019 FINAL DIAGNOSIS: Small bowel obstruction, resolved. HISTORY OF PRESENT ILLNESS: Ms. Astudillo is a 53-year-old woman with multiple past surgeries who presented with recurrent symptoms of small-bowel obstruction. Her symptoms resolved on bowel rest and NG decompression and a small bowel follow-through on 06/12/2019, showed no evidence of persistent obstruction. Her diet was advanced and she was discharged home on 06/13/2019. She is to continue on a soft diet and advance as tolerated. She is to return if she has recurrent symptoms. Job ID: [id number]
[2019-06-17] MEDS ORDERED: Ibuprofen 600 MG TAB PO PRN (08:30)
== END 2019-06-13 11:03 | disposition home or self-care (01) | DRG 390 ==
LOC: SCSER 20:42 → SURG B 22:19
PROVIDERS: ADMIT Specialist; ATTEND Specialist
PROC: 0D9670Z Drainage of Stomach with Drainage Device, Via Natural or Artificial Opening (ICD-10-PCS; principal; 2019-06-11)
DX: K56.600 Partial intestinal obstruction, unspecified as to cause (principal); Z90.49 Acquired absence of other specified parts of digestive tract; Z98.51 Tubal ligation status; Z88.8 Allergy status to other drugs, medicaments and biological substances
CPT/HCPCS: 36415; 74019; 74022; 74177; 74250; 80053; 85025; 96374; 96375; C9113; J0131; J1650; J2270; J2405; J3480; J7120